=== PATIENT | female | born 1960 | race Caucasian/White ===

== ENCOUNTER 2020-12-02 18:30 | Emergency (ER) | payer OTHER ==
[~2020-12-02 18:30] MED LIST: ALLEGRA ALLERG180 MG PO; CYCLOBENZAPRINE10 MG PO; GLUCOTROL10 MG PO; IBUPROFEN800 MG PO; JANUMET 50-1,01 EACH PO; LIDOCAINE 5% P1 EACH TOP; MEDROL4 M2 PO; MELOXICAM15 MG PO; NORCO 5-325 TA1 EACH PO; ZOCOR20 MG PO; ZOVIRAX800 MG PO
[2020-12-02 20:20] LABS: BILIRUBIN NEGATIVE (NEGATIVE); BLOOD NEGATIVE Ery/uL (NEGATIVE); CLARITY CLEAR (CLEAR); COLOR YELLOW (YELLOW); GLUCOSE (U) 3+ mg/dL (NORMAL); LEUKOCYTES NEGATIVE Leu/uL (NEGATIVE); NITRITE NEGATIVE (NEGATIVE); PROTEIN NEGATIVE (NEGATIVE); SPECIFIC GRAVITY 1.015 (1.001-1.030); UROBILINOGEN 0.2 mg/dL (0.2-1.0); pH 5.5 (5.0-9.0)
[2020-12-02] MEDS ORDERED: ROBAXIN500 MG PO (20:42)
[2020-12-02] MEDS ORDERED: IBUPROFEN800 MG PO (20:42)
[2020-12-02] MEDS ORDERED: NORCO 5-325 TA1 EACH PO (20:42)
== END 2020-12-02 21:19 | disposition home or self-care (01) ==
LOC: FER 18:30
PROVIDERS: Emergency Medicine Emergency Medical Services
DX: M54.5 Low back pain (principal); E11.9 Type 2 diabetes mellitus without complications; E78.5 Hyperlipidemia, unspecified; Z79.84 Long term (current) use of oral hypoglycemic drugs; Z79.899 Other long term (current) drug therapy
CPT/HCPCS: 72110; 81003

== ENCOUNTER 2021-06-07 12:55 | Emergency (ER) | payer OTHER ==
[~2021-06-07 12:55] MED LIST changes: +ROBAXIN500 MG PO
[2021-06-07 14:34] LABS: BASOPHIL 0.6 % (0-2); EOSINOPHIL 1.1 % (0-5); HCT 39.9 % (37.0-47.0); HGB 12.6 g/dl (12.5-16.0); LYMPHOCYTE 24.9 % (15-48); MCH 26.8 pg (25.0-31.0); MCHC 31.6 g/dL (32.0-36.0); MCV 84.9 fL (78.0-100.0); MONOCYTE 9.3 % (0-12); MPV 8.2 fL (6.0-9.5); NEUTROPHIL 63.8 % (41-80); NRBC 0; PLT 331 K/uL (150-400); RDW 15.3 % (11.5-14.0); WBC 7.9 K/uL (4.0-10.5)
[2021-06-07 15:21] LABS: ALBUMIN 3.1 g/dL (3.4-5.0); BILIRUBIN - TOTAL 0.2 mg/dL (0.2-1.0); BUN/CREAT RATIO (CALC) 19.4 RATIO; CREATININE 0.67 mg/dL (0.51-0.95); GLOBULIN (CALCULATION) 4.7 g/dL; POTASSIUM 3.4 mmol/L (3.5-5.1); TOTAL PROTEIN 7.8 g/dL (6.4-8.2)
[2021-06-07] MEDS ORDERED: METRONIDAZOLE500 MG PO (16:33)
[2021-06-07] MEDS ORDERED: CIPRO500 MG PO (16:33)
== END 2021-06-07 16:49 | disposition home or self-care (01) ==
LOC: FER 12:55
PROVIDERS: Nurse Practitioner Family
DX: K52.9 Noninfective gastroenteritis and colitis, unspecified (principal); E11.9 Type 2 diabetes mellitus without complications; Z79.84 Long term (current) use of oral hypoglycemic drugs
CPT/HCPCS: 36415; 80053; 83690; 84484; 85025; 93005; J7030; Q9967

== ENCOUNTER → 2021-07-23 | Day surgery (SDC) | payer OTHER ==
[~2021-07-23] VITALS: Ht 157.5 cm; Wt 59.0 kg
[~2021-07-23] MED LIST changes: +ATORVASTATIN CA20 MG PO; +CIPRO500 MG PO; +DETROL LA2 MG PO; +DICLOFENAC SODI75 MG PO; +JARDIANCE25 MG PO; +METRONIDAZOLE500 MG PO
== END | disposition home or self-care (01) ==
LOC: FAS 08:33
DX: K59.00 Constipation, unspecified (principal); K64.8 Other hemorrhoids; R10.12 Left upper quadrant pain; E11.65 Type 2 diabetes mellitus with hyperglycemia; E78.00 Pure hypercholesterolemia, unspecified; Z79.84 Long term (current) use of oral hypoglycemic drugs; Z79.899 Other long term (current) drug therapy; Z90.49 Acquired absence of other specified parts of digestive tract
CPT/HCPCS: J2250; J2704; J7120

== ENCOUNTER 2022-01-31 08:34 | Emergency (ER) | payer OTHER ==
[2022-01-31] MEDS ORDERED: NAPROXEN500 MG PO (10:26)
== END 2022-01-31 10:37 | disposition home or self-care (01) ==
LOC: FER 08:34
DX: M79.671 Pain in right foot (principal); E11.9 Type 2 diabetes mellitus without complications
CPT/HCPCS: 73630